=== PATIENT | female | born 1960 | race Caucasian/White ===

== ENCOUNTER 2017-03-27 03:00 | Emergency (ER) | payer OTHER ==
[~2017-03-27 03:00] MED LIST: BENA20TA PO; LORA-373 PO; PANT40TA3 PO; TRAZ150T75 PO
[2017-03-27 03:43] VITALS: BP 117/60; PULSE 63; RESP 20; TEMP 97.7; O2SAT 95
[2017-03-27 06:09] VITALS: PULSE 73
[2017-03-27 06:31] LABS: CREATINE KINASE 85 U/L (26-192)
--- NOTE | 2017-03-27 07:29 | HHI.HP ---
HPI Primary Care Physician No Primary Care Physician Chief Complaint Chest pain History of Present Illness This is a 57-year-old female that presents to the [place] ED to be evaluated for chest discomfort was also transferred via [facility] to the chest pain center to further evaluate her chest pain. Patient states she had 2 episodes of discomfort over last week. The first was one week ago. Occurred oh 2:00 in the morning. She'll left-sided chest/shoulder achiness. It last about 10 minutes. No other associated symptoms. She is able to fall back to sleep. And then yesterday afternoon it reoccurred while driving home. It was a similar discomfort however it radiated down her left arm. It seemed to last a few hours. She denied shortness of breath, nausea, or diaphoresis. Found nothing to worsen the symptoms. Took 800 mg of ibuprofen and Ativan which would not seem to make a rapid improvement. Denies recent illnesses. Denies fevers or chills. Patient states she's had discomforts in the past and has had a heart catheterization in [facility] and states that the heart catheter was okay and the doctor told her that she is change her ways but she states she does not really know what that means. Patient continues to smoke. Review of Systems General: Patient denies fevers, chills recent, and recent travel HEENT: Patient denies headache, sore throat, difficulty swallowing. Cardiovascular: Has the chest discomfort as mentioned above. Denies sensation of heart beating rapidly or irregularly. No syncope. Denies diaphoresis. Respiratory: Denies shortness of breath or inspirational chest discomfort. Denies coughing wheezing or hemoptysis. GI: Patient denies nausea, vomiting, diarrhea, abdominal pain, bloody stools. Musculoskeletal: Patient denies joint pain or edema. Denies calf pain or edema. Neurovascular: Patient denies numbness, tingling, weakness in extremities. Denies headache. Endocrine: Denies polyuria and polydipsia. Hematologic: Denies easy bruising. Skin: Denies rash or itching. Past Family Social History Allergies: Coded Allergies: No Known Allergies (Unverified , 03/26/17) Past Medical History Hypertension, anxiety, GERD, and hyperlipidemia however she states she does not take medications for that. Denies diabetes and known CAD. Past Surgical History Cardiac catheterization with intervention about 20 years ago. Reported Medications Reported Meds & Active Scripts Active Reported Benazepril (Benazepril HCl) 20 Mg Tab 20 Mg PO BID Trazodone (Trazodone HCl) 150 Mg Tab 150 Mg PO HS Pantoprazole (Pantoprazole Sodium) 40 Mg Tab 40 Mg PO DAILY Lorazepam 0.5 Mg Tab 0.5 Mg PO HS PRN Family History Denies family history of CAD. Social History Patient smokes an occasional cigar. Denies alcohol or illicit drugs. She is . Physical Exam Vital Signs Vital Signs Date Time Temp Pulse Resp B/P Pulse Ox O2 Delivery O2 Flow Rate FiO2 03/27/17 06:09 73 03/27/17 03:43 97.7 63 20 117/60 95 Physical Exam GENERAL: This is a well-nourished, well-developed patient, in no apparent distress. Patient speaks in clear complete sentences. Patient is pleasant. HEENT: Head is atraumatic and normocephalic. Neck is supple without lymphadenopathy and trachea is midline. No JVD or carotid bruits. CARDIOVASCULAR: Regular rate and rhythm without murmurs, gallops, or rubs. RESPIRATORY: Clear to auscultation. Breath sounds equal bilaterally. No wheezes , rales, or rhonchi. Chest wall is nontender. No use of accessory muscles. GASTROINTESTINAL: Abdomen is nontender, nondistended. Abdomen soft. No obvious pulsatile mass or bruit. No CVA tenderness. Strong femoral pulses bilaterally. Normal bowel sounds in all quadrants. MUSCULOSKELETAL: Patient is moving upper and lower extremities freely. No calf tenderness or edema, no Homans sign. Strong pulses in upper and lower extremities. NEUROLOGICAL: Patient is alert and oriented. Cranial nerves 2-12 are grossly intact. No focal deficits and speech is clear. SKIN: No rash and turgor is normal. Laboratory Laboratory Tests Test 03/27/17 05:50 Total Creatine Kinase 85 Troponin I LESS THAN 0.02 Imaging Chest x-ray reveals nothing acute. Course EKGs have sinus rhythm without significant ST segment depressions or elevations. Assessment and Plan Assessment and Plan * Chest pain: Patient has had serial cardiac enzymes and EKGs for ruling out purposes and has been seen by Dr. Baldev Lucas of cardiology in the chest pain center. She will undergo a Ryland protocol ETT and if that were to be nonischemic she would then be discharged home with instructions to follow-up with her primary care physician. * Hypertension: Continue current medication. * Anxiety: Continue current medication. * GERD: Continue current medication. * Hyperlipidemia: Patient states she has chosen not to take any medication for this. She needs discuss with her physician and get on medication to treat her hyperlipidemia. * Tobacco abuse: Patient has been counseled on importance of smoking cessation. Patient is stable this time. She is agreeable to this plan. Joshua Redman March 27, 2017 07:29
[2017-03-27 08:40] VITALS: BP 128/75; PULSE 75; RESP 18; TEMP 97.8; O2SAT 95
--- NOTE | 2017-03-27 08:49 | HHI.DCPOC ---
Discharge Care Plan Diagnosis: (1) Chest pain (2) Hypertension (3) Tobacco abuse (4) Hyperlipidemia Goals to Promote Your Health DISCUSS TAKING CHOLESTEROL MEDICATIONS WITH YOUR PRIMARY CARE PHYSICIAN. * To prevent worsening of your condition and complications * To maintain your health at the optimal level Directions to Meet Your Goals Take your medications as prescribed Follow your dietary instruction Follow activity as directed Keep your appointments as scheduled Take your immunizations and boosters as scheduled If your symptoms worsen call your PCP, if no PCP go to Urgent Care Center or Emergency Room Smoking is Dangerous to Your Health. Avoid second hand smoke Call the 24-hour hour crisis hotline for domestic abuse at Joshua Redman March 27, 2017 08:49
[2017-03-27] MEDS ORDERED: LORazepam 0.5 MG TAB PO PRN (09:00)
[2017-03-27] MEDS ORDERED: PANTOPRAZOLE SOD 40 MG DELAYED RELEASE TAB PO SCH (09:00)
[2017-03-27] MEDS ORDERED: LISINOPRIL 20 MG TAB PO SCH (09:00)
--- NOTE | 2017-03-27 12:29 | EKG ---
Date Performed: 03/27/2017 Time Performed: 05:52:25 PTAGE: 57 years EKG: Sinus rhythm WITH FIRST DEGREE AV BLOCK LOW QRS VOLTAGE IN PRECORDIAL LEADS ABNORMAL ECG NO PREVIOUS TRACING DOCTOR: Baldev Lucas Interpretating Date/Time 03/27/2017 12:27:40
--- NOTE | 2017-03-27 12:30 | EKG ---
Date Performed: 03/27/2017 Time Performed: 03:19:03 PTAGE: 57 years EKG: Sinus rhythm WITH FIRST DEGREE AV BLOCK NONSPECIFIC ST & T-WAVE ABNORMALITY ABNORMAL ECG NO PREVIOUS TRACING DOCTOR: Baldev Lucas Interpretating Date/Time 03/27/2017 12:28:29
--- NOTE | 2017-03-27 12:36 | TR ---
Date Performed: 03/27/2017 Time Performed: 08:22:52 DOCTOR: Baldev Lucas DRUG LIST: CLINICAL HISTORY: CHEST PAIN REASON FOR TEST: REASON FOR ENDING: OBSERVATION: CONCLUSION: LINA PROTOCOL. NO CP. TEST STOPPED SECONDARY TO SOB AND LEG FATIGUE AFTER REACHING GOAL HR.Maximum TM=185 % Max HR Achieved=87.0% % Target HR Achieved=87.0% Total Exercise Time=7:39 COMMENTS: Patient exercised using the Lina protocol. No electrocardiographic changes were seen to suggest ischemia. Hemodynamic response to exercise was normal. No significant arrhythmia was prese nt.
[2017-03-27] MEDS ORDERED: traZODone HCL 50 MG TAB PO SCH (21:00)
== END 2017-03-27 10:28 | disposition home or self-care (01) ==
LOC: NEDDLT 03:00 → UNDOADMOB 03:01 → NEPGCP 03:01 → NEDDLT 10:28 → UNDODISOB 10:28
DX: R07.89 Other chest pain (principal); I10 Essential (primary) hypertension; K21.9 Gastro-esophageal reflux disease without esophagitis; F41.9 Anxiety disorder, unspecified; E78.5 Hyperlipidemia, unspecified; F17.290 Nicotine dependence, other tobacco product, uncomplicated
CPT/HCPCS: 71010; 80048; 82550; 83735; 84484; 85007; 85027; 85610; 85730; 93005; 93017; 99281